=== PATIENT | female | born 1935 | race Caucasian/White ===

== ENCOUNTER 2017-06-26 17:49 | Emergency (ER) | payer OTHER ==
[~2017-06-26] VITALS: Ht 165.1 cm; Wt 65.2 kg
[~2017-06-26 17:49] MED LIST: HYDROCHLOROTH12.5 M3 PO; LOVASTATIN40 MG PO; OMEPRAZOLE20 MG PO; VERAPAMIL HCL180 MG PO
[2017-06-26] MEDS ORDERED: KEFLEX500 MG PO (19:50)
[2017-06-26 20:07] LABS: HEMATOCRIT 39.2 % (36.0-46.0); HEMOGLOBIN 13.2 G/DL (11.9-15.5); MCH 28.5 PG (29.0-34.0); MCHC 33.7 G/DL (30.0-36.0); MCV 84.7 FL (83-99); PLATELET COUNT 255 K/uL (156-360); RBC DIS.WIDTH-CV 12.7 % (11.8-14.6); RBC DIS.WIDTH-SD 39.1 % (39-53); RED BLOOD COUNT 4.63 M/uL (3.80-5.20); WHITE BLOOD COUNT 7.8 K/uL (4.1-10.2)
[2017-06-26 20:16] LABS: CHLORIDE 106 mEq/L (99-109); POTASSIUM 3.1 mEq/L (3.7-5.4); SODIUM 142 mEq/L (136-147)
[2017-06-26 20:17] LABS: GLUCOSE 142 mg/dL (70-99)
[2017-06-26 20:21] LABS: CREATININE 0.7 mg/dL (0.6-1.3); GFR ESTIMATE (CALCULATED) > 59 mL/min/
[2017-06-26 20:22] LABS: UREA NITROGEN (BUN) 14 mg/dL (9-23)
[2017-06-26 20:32] VITALS: BP 145/79
== END 2017-06-26 20:32 | disposition home or self-care (01) ==
LOC: EME 17:49
PROVIDERS: Nurse Practitioner Family
DX: L03.116 Cellulitis of left lower limb (principal); I10 Essential (primary) hypertension
CPT/HCPCS: 80048; 85027; 93971; 99281; 99284